=== PATIENT | female | born 1935 | race Caucasian/White ===

== ENCOUNTER 2017-06-27 15:17 | Emergency (ER) | payer OTHER ==
[~2017-06-27] VITALS: Ht 167.6 cm; Wt 111.3 kg
[~2017-06-27 15:17] MED LIST: CELEBREX200 MG PO; DOXYCYCLINE HYC20 MG PO; Ecotrin PO; FINACEA 15% GEL50 GM TP; LISINOPRIL-HCT1 EACH PO; ORACEA40 MG PO; Oracea PO; PRILOSEC40 MG PO; Percocet 5/325,Endoc PO; STOOL SOFTNER PO; Senokot S,Pericolace PO; TRAMADOL HCL50 MG PO; VITAMIN D250000 UNIT PO; Zestoretic,Prinzide PO
[2017-06-27 18:48] LABS: BASOPHIL (%) 1.1 % (0-1); BASOPHIL COUNT 0.1 K/uL (0-0.1); EOSINOPHIL (%) 4.4 % (0-5); EOSINOPHIL COUNT 0.3 K/uL (0-0.3); HEMATOCRIT 47.5 % (36.0-46.0); HEMOGLOBIN 15.9 G/DL (11.9-15.5); IMMATURE GRANULOCYTE (%) 0.5 % (0.0-0.7); LYMPHOCYTE (%) 23.7 % (15-42); LYMPHOCYTE COUNT 1.8 K/uL (1.0-2.8); MCH 33.1 PG (29.0-34.0); MCHC 33.5 G/DL (30.0-36.0); MCV 98.8 FL (83-99); MONOCYTE (%) 8.1 % (3-12); MONOCYTE COUNT 0.6 K/uL (0-0.8); NEUTROPHIL (%) 62.2 % (45-76); NEUTROPHIL COUNT 4.7 K/uL (1.8-6.4); PLATELET COUNT 228 K/uL (156-360); RBC DIS.WIDTH-CV 12.3 % (11.8-14.6); RBC DIS.WIDTH-SD 44.7 % (39-53); RED BLOOD COUNT 4.81 M/uL (3.80-5.20); WHITE BLOOD COUNT 7.5 K/uL (4.1-10.2)
[2017-06-27 18:58] LABS: CHLORIDE 102 mEq/L (99-109); POTASSIUM 4.8 mEq/L (3.7-5.4); SODIUM 139 mEq/L (136-147)
[2017-06-27 19:01] LABS: GLUCOSE 120 mg/dL (70-99)
[2017-06-27 19:03] LABS: TOTAL BILIRUBIN 0.4 mg/dL (0.0-1.0)
[2017-06-27 19:04] LABS: ALKALINE PHOSPHATASE 91 IU/L (3-129)
[2017-06-27 19:05] LABS: CREATININE 0.8 mg/dL (0.6-1.3); GFR ESTIMATE (CALCULATED) > 59 mL/min/
[2017-06-27 19:06] LABS: AST (GOT) 15 IU/L (2-34); DIRECT BILIRUBIN 0.2 mg/dL (0.0-0.3); UREA NITROGEN (BUN) 23 mg/dL (9-23)
[2017-06-27 19:07] LABS: ALT (GPT) 13 IU/L (3-49)
[2017-06-27 21:10] LABS: APPEARANCE SL.HAZY ((CLEAR)); BILIRUBIN NEGATIVE; BLOOD NEGATIVE; COLOR YELLOW ((YELLOW)); GLUCOSE (STRIP) NEGATIVE; KETONES 5; LEUKOCYTES TRACE; NITRITE NEGATIVE; PROTEIN (STRIP) NEGATIVE; SPECIFIC GRAVITY 1.045 (1.000-1.030); UROBILINOGEN 0.2 MG/DL (0.2-1.0)
[2017-06-27 21:18] LABS: BACTERIA RARE /HPF; EPITHELIAL CELLS 1+ /HPF; MUCUS TRACE /LPF; RED BLOOD CELLS 0-5 /HPF (0-5); WHITE BLOOD CELLS 0-5 /HPF (0-5)
[2017-06-27] MEDS ORDERED: MOTRIN600 MG PO (21:53)
[2017-06-27] MEDS ORDERED: NORCO 5/3251 TABLET PO (21:53)
[2017-06-27 22:14] VITALS: BP 142/65
== END 2017-06-27 22:24 | disposition home or self-care (01) ==
LOC: EME 15:17
PROVIDERS: Physician Assistant
DX: R10.2 Pelvic and perineal pain (principal); E86.0 Dehydration; E66.01 Morbid (severe) obesity due to excess calories; Z68.39 Body mass index [BMI] 39.0-39.9, adult; C44.90 Unspecified malignant neoplasm of skin, unspecified; I10 Essential (primary) hypertension; Z98.84 Bariatric surgery status
CPT/HCPCS: 74177; 80048; 80076; 81003; 83605; 85025; 93971; 99281; 99284; J1885; J2405; J3010; J7030

== ENCOUNTER 2017-12-15 14:07 | Emergency (ER) | payer OTHER ==
[~2017-12-15] VITALS: Ht 167.6 cm; Wt 114.0 kg
[~2017-12-15 14:07] MED LIST changes: +ERGOCALCIF50000 UNIT PO; +MOTRIN600 MG PO; +NORCO 5/3251 TABLET PO; +OMEPRAZOLE40 M1 PO; -PRILOSEC40 MG PO; -VITAMIN D250000 UNIT PO
[2017-12-15 14:48] LABS: HEMATOCRIT 31.2 % (36.0-46.0); HEMOGLOBIN 10.8 G/DL (11.9-15.5); MCH 34.3 PG (29.0-34.0); MCHC 34.6 G/DL (30.0-36.0); PLATELET COUNT 231 K/uL (156-360); RED BLOOD COUNT 3.15 M/uL (3.80-5.20); WHITE BLOOD COUNT 8.7 K/uL (4.1-10.2)
[2017-12-15 14:59] LABS: CHLORIDE 106 mEq/L (99-109); POTASSIUM 4.5 mEq/L (3.7-5.4); SODIUM 140 mEq/L (136-147)
[2017-12-15 15:00] LABS: GLUCOSE 153 mg/dL (70-99)
[2017-12-15 15:04] LABS: CREATININE 1.4 mg/dL (0.6-1.3); GFR ESTIMATE (CALCULATED) 38 mL/min/
[2017-12-15 15:05] LABS: UREA NITROGEN (BUN) 44 mg/dL (9-23)
[2017-12-15 16:18] LABS: APPEARANCE CLEAR ((CLEAR)); BILIRUBIN NEGATIVE; BLOOD NEGATIVE; COLOR YELLOW ((YELLOW)); GLUCOSE (STRIP) NEGATIVE; KETONES NEGATIVE; LEUKOCYTES TRACE; NITRITE NEGATIVE; PROTEIN (STRIP) NEGATIVE; SPECIFIC GRAVITY 1.023 (1.000-1.030); UROBILINOGEN 0.2 MG/DL (0.2-1.0)
[2017-12-15 16:26] LABS: BACTERIA RARE /HPF; EPITHELIAL CELLS 1+ /HPF; MUCUS TRACE /LPF; RED BLOOD CELLS 0-5 /HPF (0-5); UCUL ADDED? NO; WHITE BLOOD CELLS 0-5 /HPF (0-5)
[2017-12-15 16:38] VITALS: BP 132/78
[2017-12-16] MEDS ORDERED: COLACE100 MG PO (19:40)
[2017-12-16] MEDS ORDERED: TYLENOL EXTRA500 MG PO (19:43)
[2017-12-16] MEDS ORDERED: TRAZODONE HCL50 MG PO (19:44)
[2017-12-16] MEDS ORDERED: LO-DOSE ASPIRIN81 M2 PO (19:46)
[2017-12-16] MEDS ORDERED: NASACORT10.8 ML BOTH NARES (19:48)
[2017-12-16] MEDS ORDERED: VITAMIN B12 100MCG PO (19:48)
[2017-12-16] MEDS ORDERED: THERA TEARS30 ML BOTH EYES (19:49)
[2017-12-16] MEDS ORDERED: ALAWAY10 ML BOTH EYES (19:50)
[2017-12-16] MEDS ORDERED: MYVITALIFE1 EACH PO (19:55)
== END 2017-12-15 16:50 | disposition home or self-care (01) ==
LOC: EME 14:07
PROVIDERS: Physician Assistant
DX: K92.2 Gastrointestinal hemorrhage, unspecified (principal); R00.2 Palpitations; R53.1 Weakness; I10 Essential (primary) hypertension; Z98.84 Bariatric surgery status; Z85.828 Personal history of other malignant neoplasm of skin; D64.9 Anemia, unspecified
CPT/HCPCS: 80048; 81003; 85027; 86850; 86900; 86901; 93005; 99281; 99283

== ENCOUNTER 2017-12-16 17:45 | Observation (INO) | payer OTHER ==
[~2017-12-16] VITALS: Ht 167.6 cm; Wt 112.9 kg
[2017-12-16 18:57] LABS: HEMATOCRIT 30.4 % (36.0-46.0); HEMOGLOBIN 10.5 G/DL (11.9-15.5); MCHC 34.5 G/DL (30.0-36.0); MCV 98.4 FL (83-99); PLATELET COUNT 231 K/uL (156-360); RBC DIS.WIDTH-SD 46.4 % (39-53); RED BLOOD COUNT 3.09 M/uL (3.80-5.20); WHITE BLOOD COUNT 7.8 K/uL (4.1-10.2)
[2017-12-16 19:08] LABS: CHLORIDE 106 mEq/L (99-109); POTASSIUM 3.7 mEq/L (3.7-5.4); SODIUM 140 mEq/L (136-147)
[2017-12-16 19:14] LABS: CREATININE 1.2 mg/dL (0.6-1.3); GFR ESTIMATE (CALCULATED) 46 mL/min/
[2017-12-16 19:15] LABS: UREA NITROGEN (BUN) 32 mg/dL (9-23)
[2017-12-16 19:19] LABS: GLUCOSE 241 mg/dL (70-99)
[2017-12-16] MEDS ORDERED: COLACE100 MG PO (19:40)
[2017-12-16] MEDS ORDERED: TYLENOL EXTRA500 MG PO (19:43)
[2017-12-16] MEDS ORDERED: TRAZODONE HCL50 MG PO (19:44)
[2017-12-16] MEDS ORDERED: LO-DOSE ASPIRIN81 M2 PO (19:46)
[2017-12-16] MEDS ORDERED: VITAMIN B12 100MCG PO (19:48)
[2017-12-16] MEDS ORDERED: NASACORT10.8 ML BOTH NARES (19:48)
[2017-12-16] MEDS ORDERED: THERA TEARS30 ML BOTH EYES (19:49)
[2017-12-16] MEDS ORDERED: ALAWAY10 ML BOTH EYES (19:50)
[2017-12-16] MEDS ORDERED: MYVITALIFE1 EACH PO (19:55)
[2017-12-16 21:58] VITALS: BP 120/59
[2017-12-17] VITALS (15 sets, daily range): BP systolic 107–140; BP diastolic 55–68
[2017-12-17 05:48] LABS: HEMATOCRIT 28.1 % (36.0-46.0); HEMOGLOBIN 9.3 G/DL (11.9-15.5); MCH 33.2 PG (29.0-34.0); MCHC 33.1 G/DL (30.0-36.0); MCV 100.4 FL (83-99); PLATELET COUNT 213 K/uL (156-360); RBC DIS.WIDTH-CV 13.2 % (11.8-14.6); RBC DIS.WIDTH-SD 47.8 % (39-53); WHITE BLOOD COUNT 7.3 K/uL (4.1-10.2)
[2017-12-17 06:11] LABS: ALBUMIN 3.2 G/DL (3.2-4.8); ALKALINE PHOSPHATASE 56 IU/L (3-129); ALT (GPT) 8 IU/L (3-49); AST (GOT) 9 IU/L (2-34); CHLORIDE 106 MEQ/L (99-109); CREATININE 0.8 MG/DL (0.6-1.3); GFR ESTIMATE (CALCULATED) > 59 mL/min/; POTASSIUM 3.7 MEQ/L (3.7-5.4); SODIUM 141 MEQ/L (136-147); TOTAL BILIRUBIN 0.4 MG/DL (0.0-1.0); TOTAL PROTEIN 5.2 G/DL (6.4-8.3); UREA NITROGEN (BUN) 23 mg/dL (9-23)
[2017-12-17 06:26] LABS: GLUCOSE 112 mg/dL (70-99)
[2017-12-17 07:55] LABS: PTT 18.5 SEC (25-37)
[2017-12-18 03:50] VITALS: BP 126/58
[2017-12-18 05:17] LABS: HEMATOCRIT 33.1 % (36.0-46.0); HEMOGLOBIN 11.2 G/DL (11.9-15.5); MCHC 33.8 G/DL (30.0-36.0); MCV 97.6 FL (83-99); NRBC (%) 0.3 /100 WBC (0-0); PLATELET COUNT 222 K/uL (156-360); RBC DIS.WIDTH-CV 15.4 % (11.8-14.6); RBC DIS.WIDTH-SD 53.7 % (39-53); WHITE BLOOD COUNT 7.9 K/uL (4.1-10.2)
[2017-12-18 05:32] LABS: RED BLOOD COUNT 3.39 M/uL (3.80-5.20)
[2017-12-18 07:50] VITALS: BP 131/64
== END 2017-12-18 11:40 | disposition home or self-care (01) ==
LOC: EME 17:45 → 4SOUTH 20:31 → EDOF 20:31 → ENRESERV 20:32 → 4SOUTH 21:52
PROVIDERS: Physician Assistant
PROC: 30233N1 Transfusion of Nonautologous Red Blood Cells into Peripheral Vein, Percutaneous Approach (ICD-10-PCS; principal; 2017-12-17)
PROC: 0DB68ZX Excision of Stomach, Via Natural or Artificial Opening Endoscopic, Diagnostic (ICD-10-PCS; 2017-12-17)
DX: K92.1 Melena (principal); D62 Acute posthemorrhagic anemia; K25.4 Chronic or unspecified gastric ulcer with hemorrhage; K44.9 Diaphragmatic hernia without obstruction or gangrene; Z98.84 Bariatric surgery status; Z79.82 Long term (current) use of aspirin; I10 Essential (primary) hypertension; K21.9 Gastro-esophageal reflux disease without esophagitis; E55.9 Vitamin D deficiency, unspecified; Z82.3 Family history of stroke; Z80.3 Family history of malignant neoplasm of breast; Z83.3 Family history of diabetes mellitus; Z85.828 Personal history of other malignant neoplasm of skin
CPT/HCPCS: 80048; 80053; 85027; 85610; 85730; 86850; 86900; 86901; 86920; 88305; 88342 TC; 93005; 99281; 99285; C9113; G0378; J7030; J7040; P9016

== ENCOUNTER 2018-01-05 08:15 | Day surgery (SDC) | payer OTHER ==
[~2018-01-05] VITALS: Ht 167.6 cm; Wt 113.0 kg
[~2018-01-05 08:15] MED LIST changes: +ALAWAY10 ML BOTH EYES; +CLOBETASOL PROP60 GM TP; +COLACE100 MG PO; +ECONAZOLE NITRA15 GM TP; +LO-DOSE ASPIRIN81 M2 PO; +MYVITALIFE1 EACH PO; +NASACORT10.8 ML BOTH NARES; +THERA TEARS30 ML BOTH EYES; +TRAZODONE HCL50 MG PO; +TYLENOL EXTRA500 MG PO; +VITAMIN B12 100MCG PO
== END 2018-01-05 15:38 | disposition home or self-care (01) ==
LOC: CATH 08:15
PROC: B2151ZZ Fluoroscopy of Left Heart using Low Osmolar Contrast (ICD-10-PCS; principal; 2018-01-05)
PROC: B2111ZZ Fluoroscopy of Multiple Coronary Arteries using Low Osmolar Contrast (ICD-10-PCS; principal; 2018-01-05)
PROC: 4A023N7 Measurement of Cardiac Sampling and Pressure, Left Heart, Percutaneous Approach (ICD-10-PCS; principal; 2018-01-05)
DX: I25.10 Atherosclerotic heart disease of native coronary artery without angina pectoris (principal); K21.9 Gastro-esophageal reflux disease without esophagitis; I10 Essential (primary) hypertension; E55.9 Vitamin D deficiency, unspecified; D64.9 Anemia, unspecified; K25.9 Gastric ulcer, unspecified as acute or chronic, without hemorrhage or perforation; E78.5 Hyperlipidemia, unspecified; E11.9 Type 2 diabetes mellitus without complications; I49.3 Ventricular premature depolarization; E66.01 Morbid (severe) obesity due to excess calories; Z68.39 Body mass index [BMI] 39.0-39.9, adult; Z79.82 Long term (current) use of aspirin
CPT/HCPCS: C1769; C1887; J1644; J2250; J3010; J7040